=== PATIENT | female | born 1990 | race Caucasian/White ===

== ENCOUNTER 2017-07-30 07:08 | Emergency (ER) | payer OTHER ==
[2017-07-30 07:19] VITALS: TEMP 98.7; BMI 27.0
--- NOTE | 2017-07-30 07:38 | PDOC ---
History of Present Illness - General Chief Complaint: Pain, Acute Stated Complaint: ABD PAIN Time Seen by Provider: 07/30/17 07:29 - History of Present Illness Initial Comments: 07/30/17 07:39 27 yo F with h/o asthma who presents with periumbilcial pain. Pain is worsening , sharp, stabbing, spasmodic ( 8/10) periumbilical pain beginning yesterday evening. Asx. with multiple episodes of non bloody, watery stools beginning yesterday evening. Recalls eating pinaeapple earlier in day (07/29/16) from coworker with slight development of pain thereafter. Similar report of symptoms in child of coworker who also ate pineapple. OTC Bismuth Salicylate with no improvement in symptoms. Slight postprandial pain, w/ decreased appetite, and PO intake. Pain worse with movement. New onset nausea and flushing this AM. No h/o abdominal trauma or surgery. Deneis emesis, F/C, CP, SOB, urinary complaints, hematuria, flank pain,vaginal bleeding/discharge, lightheadedness, LOC. No sick contacts. Endorses seafood allergy. Denies h/o appendectomy, or prior abdominal procedures. Denies prior GI pathology. Pt. is . LMP (07/20/16 ). Denies h/o STI's. On OCP, and sexually active with one partner Past History - Past Medical History Allergies/Adverse Reactions: Allergies Allergy/AdvReac Type Severity Reaction Status Date / Time No Known Drug Allergies Allergy Verified 07/30/17 07:14 seafood Allergy Intermediate Hives Uncoded 07/30/17 07:14 Home Medications: Ambulatory Orders NK [No Known Home Medication] 07/30/17 Asthma: Yes Cancer: No Cardiac Disorders: No COPD: No Diabetes: No HTN: No Seizures: No Thyroid Disease: No - Immunization History Immunization Up to Date: Yes - Suicide/Smoking/Psychosocial Hx Smoking History: Never smoked Have you smoked in the past 12 months: No Information on smoking cessation initiated: No Hx Alcohol Use: No Drug/Substance Use Hx: No Substance Use Type: None Hx Substance Use Treatment: No Review of Systems - Review of Systems Comments:: 07/30/17 07:37 GENERAL/CONSTITUTIONAL: No fever or chills. No weakness. HEAD, EYES, EARS, NOSE AND THROAT: No change in vision. No ear pain or discharge. No sore throat.- CARDIOVASCULAR: No chest pain or shortness of breath RESPIRATORY: No cough, wheezing, or hemoptysis. GASTROINTESTINAL: + Abdominal pain and nausea. No vomiting, diarrhea or constipation. GENITOURINARY: No dysuria, frequency, or change in urination. MUSCULOSKELETAL: No joint or muscle swelling or pain. No neck or back pain. SKIN: No rash NEUROLOGIC: No headache, vertigo, loss of consciousness, or change in strength/ sensation. ENDOCRINE: No increased thirst. No abnormal weight change HEMATOLOGIC/LYMPHATIC: No anemia, easy bleeding, or history of blood clots. ALLERGIC/IMMUNOLOGIC: No hives or skin allergy. *Physical Exam - Vital Signs Last Vital Signs Temp Pulse Resp BP Pulse Ox 98.7 F 94 H 16 119/74 97 07/30/17 07:15 07/30/17 07:15 07/30/17 07:15 07/30/17 07:15 07/30/17 07:15 - Physical Exam Comments: 07/30/17 07:37 GENERAL: Awake, alert, and fully oriented, in no acute distress HEAD: No signs of trauma, normocephalic, atraumatic EYES: PERRLA, EOMI, sclera anicteric, conjunctiva clear ENT: Dry mucosal membranes. Hearing grossly normal, nares patent, oropharynx clear without exudates. NECK: Normal ROM, no JVD, or masses LUNGS: No distress, speaks full sentences, clear to auscultation bilaterally HEART: Regular rate and rhythm, normal S1 and S2, no murmurs, rubs or gallops, peripheral pulses normal and equal bilaterally. ABDOMEN: Soft, diffusely ttp with predominant periumbilical ttp, normoactive bowel sounds. No guarding, no rebound. No rigidity. No masses. No CVA ttp. Neg suprapubic ttp. EXTREMITIES : Normal inspection, Normal range of motion, no edema. No clubbing or cyanosis. SKIN: Warm, Dry, normal turgor, no rashes or lesions noted. ED Treatment Course - LABORATORY CBC & Chemistry Diagram: 07/30/17 10:10 07/30/17 11:15 Medical Decision Making - Medical Decision Making 07/30/17 08:42 27 yo F with h/o asthma who presents with worsening, sharp, stabbing, spasmodic ( 8/10) periumbilical pain beginning yesterday evening. Asx. with multiple episodes of non bloody, watery stools beginning yesterday evening. Endorses slight postprandial pain, decreased appetite, decreased PO intake, nausea, and flushing. Pain aggravated with movement. No h/o abdominal trauma or surgery. Denies emesis, F/C, CP, SOB, urinary complaints, hematuria, flank pain,vaginal bleeding/discharge, lightheadedness, LOC. No sick contacts. Endorses seafood allergy. Denies h/o appendectomy, or prior abdominal procedures. Denies prior GI pathology. Pt. is . LMP (07/20/16). Denies h/o STI's. On OCP, and sexually active with one partner. Physical exam reveals diffuse ttp with predominant periumbilical ttp. Dry mucous membranes. Hemodynamically stable. Will consider early appendicitis vs. colitis. Low suspicion of diverticulitis. DDx: Viral gastroentitiries, appendicitis, colitis, cystitis, ED Course: CBC, CMP, Lipase, BHCG UA CT AP W/CON NS 1 L, IV TYLENOL 1000 mg, PEPCID 20mg 07/30/17 09:55 UA: Neg BHCG: Neg 07/30/17 11:04 CMP: Unremarkable 07/30/17 13:27 CT AP: Multiple metallic densities scattered through bowel. No acute pathology. Patient stable and ready for d/c with return precautions. Advised to f/u with PMD in 72 hours. *DC/Admit/Observation/Transfer Diagnosis at time of Disposition: Abdominal pain Qualifiers: Abdominal location: periumbilical Qualified Code(s): R10.33 - Periumbilical pain - Discharge Dispostion Disposition: HOME Condition at time of disposition: Stable Admit: No - Referrals Referrals: Flaquito Beebe MD [Primary Care Provider] - - Patient Instructions Printed Discharge Instructions: DI for Abdominal Pain-Adult Additional Instructions: Please return to the emergency department with any new or worsening symptoms or concerns. - Post Discharge Activity - Attestations Physician Attestion: 07/30/17 12:31 I attest to the information provided in this note.
[2017-07-30] MEDS ORDERED: SODIUM CHLORIDE 1,000 ML IV STA (08:22)
[2017-07-30] MEDS ORDERED: ACETAMINOPHEN 1000 MG/100 ML VIAL (NON FORMULARY) IVPB ONE (08:22)
--- NOTE | 2017-07-30 08:37 | PDOC ---
Attending Attestation - HPI HPI: 07/30/17 09:56 The patient is a 27 year old female with a significant PMH of asthma and migraines who presents to the emergency department with GI symptoms including sharp periumbilical abdominal pain and diarrhea beginning approximately yesterday evening. She also reports nausea and flushing that began this morning. She reports taking Peptobismol earlier today to no relief. She reports she believes her symptoms are a result of ingesting pineapples yesterday morning as she noted her co-workers son had similar symptoms s/p pineapple ingestion. She denies vomiting, hematochezia, or constipation. She denies any urinary complaints. Denies vaginal discharge or bleeding. Allergies: NKDA, Seafood. - Physicial Exam PE: 07/30/17 09:56 GENERAL: Awake, alert, and fully oriented, in no acute distress HEAD: No signs of trauma EYES: PERRLA, EOMI, sclera anicteric, conjunctiva clear ENT: Auricles normal inspection, hearing grossly normal, nares patent, oropharynx clear without exudates. Moist mucosa NECK: Normal ROM, supple, no lymphadenopathy, JVD, or masses LUNGS: Breath sounds equal, clear to auscultation bilaterally. No wheezes, and no crackles HEART: Regular rate and rhythm, normal S1 and S2, no murmurs, rubs or gallops ABDOMEN: Soft, diffuse ttp, worse in periumbilical region, normoactive bowel sounds. No guarding, no rebound. No masses EXTREMITIES: Normal range of motion, no edema. No clubbing or cyanosis. No cords , erythema, or tenderness BACK: No midline spinal tenderness in cervical/thoracic/lumbar region NEUROLOGICAL: Normal speech, cranial nerves intact, negative pronator drift, 5/ 5 strength in all 4 extremities, normal sensation to light touch in all 4 extremities, normal cerebellar exam, normal gait, normal reflexes and tone SKIN: Warm, Dry, normal turgor, no rashes or lesions noted. <Kevin Gold - Last Filed: 07/30/17 09:57> - Resident Resident Name: James Jorge - ED Attending Attestation I have performed the following: I have examined & evaluated the patient, The case was reviewed & discussed with the resident, I agree w/resident's findings & plan, Exceptions are as noted - Medical Decision Making 07/30/17 11:07 19-year-old female with a history of asthma and migraines presents with abdominal pain associated with diarrhea. Vitals are unremarkable. Exam with diffuse abdominal tenderness palpation, worse around the periumbilical area. Differential includes but is not limited to colitis versus enteritis versus appendicitis. We'll obtain labs, urinalysis, and CT scan of the abdomen and pelvis to evaluate. We'll also provide symptomatic control in the meantime and reassess. 07/30/17 14:00 Labs within normal limits. CT scan with no acute findings, however notes metallic densities within the intestine, likely secondary to Pepto-Bismol use. Patient denies ingesting any metallic foreign bodies. Currently, patient reports minimal abdominal pain, states the medication she received here has helped and she requests discharge home. She is tolerating PO. Patient is clinically stable I discussed the physical exam findings, ancillary test results and final diagnoses with the patient. I answered all of the patient's questions. The patient was satisfied with the care received and felt comfortable with the discharge plan and treatment plan. The patient will call their primary care physician within 24 hours to arrange follow-up and will return to the Emergency Department with any new, persistent or worsening symptoms. <Murray Markham - Last Filed: 07/30/17 14:04>
[2017-07-30] MEDS ORDERED: ACETAMINOPHEN INJECTION 100 ML IVPB ONE (08:44)
[2017-07-30 09:02] LABS: URINE APPEARANCE SLCLOUDY; URINE BILIRUBIN NEGATIVE (NEGATIVE); URINE BLOOD 1+ (NEGATIVE); URINE COLOR STRAW; URINE GLUCOSE (UA) NEGATIVE (NEGATIVE); URINE KETONE NEGATIVE (NEGATIVE); URINE NITRITE NEGATIVE (NEGATIVE); URINE PROTEIN NEGATIVE (NEGATIVE); URINE UROBILINOGEN NEGATIVE mg/dL (0.2-1.0)
[2017-07-30 09:16] LABS: URINE LEUK ESTERASE 3+ (NEGATIVE)
[2017-07-30 09:22] LABS: EPI CELLS FEW /HPF (FEW); URINE BACTERIA RARE /hpf (NONE SEEN)
[2017-07-30] MEDS ORDERED: FAMOTIDINE IV 20 MG/12 ML VIAL IVPUSH SCH (10:00)
[2017-07-30 10:23] LABS: BASO % 0.5 % (0-2.0); EOS % 0.4 % (0-4.5); HEMATOCRIT 41.3 % (32.4-45.2); HEMOGLOBIN 13.8 GM/dL (10.7-15.3); LYMPH % 12.1 % (8-40); MCH 29.1 pg (25.7-33.7); MCHC 33.3 g/dl (32.0-36.0); MEAN CELL VOLUME 87.3 fl (80-96); MONO % 5.5 % (3.8-10.2); NEUT % 81.5 % (42.8-82.8); PLATELET COUNT 271 K/MM3 (134-434); RBC 4.73 M/mm3 (3.60-5.2)
[2017-07-30 10:47] LABS: ALBUMIN 3.5 g/dl (3.4-5.0); ALK PHOS 76 U/L (45-117); ANION GAP 6 (8-16); BILIRUBIN,TOTAL 0.7 mg/dL (0.2-1.0); BLOOD UREA NITROGEN 6 mg/dL (7-18); CHLORIDE 110 mmol/L (98-107); CO2 24 mmol/L (21-32); CREATININE 0.5 mg/dL (0.55-1.02); GLUCOSE,RANDOM 96 mg/dL (74-106); LIPASE 124 U/L (73-393); POTASSIUM 4.4 mmol/L (3.5-5.1); SGOT/AST 10 U/L (15-37); SGPT/ALT 18 U/L (12-78); SODIUM 140 mmol/L (136-145); TOT PROT 6.7 g/dl (6.4-8.2)
[2017-07-30 11:49] LABS: ALBUMIN 3.2 g/dl (3.4-5.0); ANION GAP 6 (8-16); BILIRUBIN,TOTAL 0.5 mg/dL (0.2-1.0); BLOOD UREA NITROGEN 5 mg/dL (7-18); CHLORIDE 110 mmol/L (98-107); CO2 26 mmol/L (21-32); CREATININE 0.5 mg/dL (0.55-1.02); GLUCOSE,RANDOM 91 mg/dL (74-106); POTASSIUM 4.2 mmol/L (3.5-5.1); SGOT/AST 10 U/L (15-37); SGPT/ALT 16 U/L (12-78); SODIUM 142 mmol/L (136-145); TOT PROT 6.4 g/dl (6.4-8.2)
[2017-07-30 11:50] LABS: ALK PHOS 69 U/L (45-117)
[2017-07-30 14:09] VITALS: BP 127/70; PULSE 88
== END 2017-07-30 14:09 | disposition home or self-care (01) ==
LOC: JER 07:08
PROC: 3E033NZ Introduction of Analgesics, Hypnotics, Sedatives into Peripheral Vein, Percutaneous Approach (ICD-10-PCS; principal; 2017-07-30)
DX: R10.33 Periumbilical pain (principal)
CPT/HCPCS: 36415; 74177-TC; 80053; 81003; 81015; 83690; 84703; 85025; 99283-25